=== PATIENT | female | born 1995 | race Caucasian/White ===

== ENCOUNTER 2022-09-22 08:43 | Emergency (ER) | payer BC, SELFPAY ==
--- NOTE | 2022-09-22 08:45 | ED.URI ---
HPI - URI/Sore Throat General Chief Complaint: Upper Respiratory Infection Stated Complaint: cough, sinus drainage,sore throat Time Seen by Provider: 09/22/22 08:45 Source: patient Mode of arrival: ambulatory Limitations: no limitations History of Present Illness HPI Narrative: Berta is a 27-year-old female patient presenting to clinic today with complaints of cough, sinus drainage, and sore throat x2- 3 days. She reports no fever or chills. No known sick contacts MD elicited complaint: sore throat and nasal congestion Related Data Home Medications Medication Instructions Recorded Confirmed fluoxetine 20 mg capsule 20 mg DAILY 09/22/22 09/22/22 levothyroxine 88 mcg tablet 88 mcg DAILY 09/22/22 09/22/22 norgestimate 0.25 mg-ethinyl 1 tablet DAILY 09/22/22 09/22/22 estradiol 35 mcg tablet (Tiffany) Allergies Allergy/AdvReac Type Severity Reaction Status Date / Time No Known Allergies Allergy Verified 09/22/22 09:14 Review of Systems Review of Systems: Pertinent positives per HPI. Patient denies any fever, chills, rash, headache, visual changes, dizziness, shortness of breath, chest pain, palpitations, nausea, vomiting, diarrhea, constipation, abdominal pain, or any urinary issues. PMFSH Comments At the time of my signature, I reviewed and agree with the nursing past medical, surgical, social, and family history. There is no relevant family history pertinent to the patient complaint. Exam Narrative: General: Well-developed, well nourished, in no apparent distress Head: Normocephalic, atraumatic Eyes: Pupils equally round and reactive to light bilaterally, EOM intact, sclera and conjunctive clear, no discharge, lids normal Ears: TMs intact and clear, ear canals clear, no drainage, grossly hearing normal. Nose: Nares patent, clear nasal discharge, no inflammation, no sinus tenderness. Mouth: Oral pharynx without lesions or masses, good dentition, MMM. Oropharynx red, postnasal drip Neck: Supple, trachea midline, no enlargement of anterior or posterior cervical nodes, no thyroid masses or goiter palpable. Cardio: Regular rate and rhythm, s1 and s2 normal, no murmur appreciated. Resp: Clear to auscultation bilaterally, no rhonchi, rales, wheezing or rubs Course Course Emergency Course: Portions of this record may have been created with voice recognition software. Level of Care: Express Care Visit Vital Signs Vital signs: Vital Signs Temperature 36.6 C 09/22/22 09:05 Pulse Rate 95 09/22/22 09:05 Respiratory Rate 16 09/22/22 09:05 Blood Pressure 144/106 H 09/22/22 09:05 Pulse Oximetry 97 09/22/22 09:05 Oxygen Delivery Room Air 09/22/22 09:05 Temperature 36.6 C 09/22/22 09:05 Pulse Rate 95 09/22/22 09:05 Respiratory Rate 16 09/22/22 09:05 Blood Pressure 144/106 H 09/22/22 09:05 Pulse Oximetry 97 09/22/22 09:05 Oxygen Delivery Room Air 09/22/22 09:15 Vital signs reviewed MDM - URI/Sore Throat MDM Narrative Medical decision making narrative: At the time of visit patient is resting comfortably on the exam table. Influenza and strep screen were obtained no for negative in the clinic today. I suspect the patient has an upper respiratory infection/pharyngitis. Supportive measures were discussed with the patient she voiced understanding of discharge instructions and agrees to treatment plan Differential Diagnosis Differential diagnosis: Likely upper respiratory infection, otitis media, sinusitis, viral infection, bronchitis, influenza, pharyngitis and other ( COVID) Lab Data Labs: Influenza A Screen Negative Reference Range: Negative Influenza B Screen Negative Reference Range: Negative Strep Screen Presumptive Negative *(Reference Range: Negative)* Discharge Plan Discharge Clini
[2022-09-22 09:05] VITALS: BP 144/106; PULSE 95; RESP 16; TEMP 36.6; O2SAT 97
== END 2022-09-22 09:37 | disposition home or self-care (01) ==
LOC: EXPGOSH 08:49
PROVIDERS: Emergency Provider Nurse Practitioner Family; PCP Nurse Practitioner Family
DX: J06.9 Acute upper respiratory infection, unspecified (principal); R05.9 Cough, unspecified; J02.9 Acute pharyngitis, unspecified
CPT/HCPCS: 87081; 87804; 87880; 99213; G0463

== ENCOUNTER 2024-07-31 13:31 | Emergency (ER) | payer OTHER, SELFPAY ==
[2024-07-31 13:40] VITALS: BP 145/115; PULSE 90; RESP 20; TEMP 36.5; O2SAT 100
--- NOTE | 2024-07-31 13:42 | ED.SOB ---
HPI - SOB/Dyspnea General Chief Complaint: Shortness of Breath/Dyspnea Stated Complaint: SOB/ Depression Time Seen by Provider: 07/31/24 13:43 Source: patient, RN notes reviewed and old records reviewed Mode of arrival: ambulatory Limitations: no limitations History of Present Illness HPI Narrative: patient presents accompanied by her significant other. Patient reports that she was diagnosed with COVID about 1 week ago. Says that she had been recovering nicely, but while she was ill she did not take her fluoxetine for 4 days. Today is the 1st day that she has taken it. She reports that she is having repeated panic attacks. She is tearful on arrival. She denies any suicidal or homicidal ideation. She reports that her biggest worry is going back to work. She has called her primary care provider, has an appointment next week. She reports that when she becomes anxious she does hyperventilate. we discussed methods to regulate her breathing, she is appreciative of this. Significant other is quite supportive. Related Data Allergies Allergy/AdvReac Type Severity Reaction Status Date / Time No Known Allergies Allergy Verified 07/31/24 13:37 Review of Systems Review of Systems: All systems reviewed & are unremarkable except as noted in HPI and below Constitutional: Constitutional: Reports no additional constitutional complaints ENT: Reports system reviewed and no additional complaints, except as documented Cardiovascular: Cardiovascular: Reports no additional cardiovascular complaints Respiratory: Respiratory: Reports as per HPI and Reports no additional respiratory complaints Gastrointestinal: Gastrointestinal: Reports no additional gastrointestinal complaints Psychiatric: Psychiatric: Reports anxiety, Reports panic attacks, Denies homicidal ideation and Denies suicidal ideation PMFSH Past Medical History Medical History Hypothyroidism Surgical History Surgical History H/O adenoidectomy Family History Family History Mother Depression Grandparent Skin cancer Social History Social History Social History: somewhat confident with medical forms Smoking status: Never smoker Alcohol intake: current Substance use: current Substance use type: marijuana Do You Feel Safe in your Home?: Yes Lack of Transportation: No Lack of Food: Never True Current Housing: I Have Housing Concerned About Future Housing: No Difficulty Paying Gas/Electric Bills: No Difficulty Paying for Meds: No Currently Unemployed: No Education: Bachelor's Degree Difficulty w/ Childcare or Family Care: No Living arrangements: with roommate(s) Additional living arrangements comments: Single Occupation/Education: occupation 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 There is no relevant family history pertinent to the patient complaint. Exam Const: General: cooperative, no acute distress, alert and awake Orientation/consciousness: oriented to person, oriented to place and oriented to time HENMT: Head: normal to inspection Resp: Effort & Inspection: normal respiratory effort and able to speak in complete sentences Auscultation: clear to auscultation bilaterally, no crackles, no rales, no rhonchi and no wheezes Cardio: Palpation: normal PMI Rate: regular rate Rhythm: regular rhythm Heart sounds: S1 normal heart sound present and S2 normal heart sound present Neuro: General: oriented to person, oriented to place and oriented to time Cranial nerves: Yes CN's II-XII intact bilate
== END 2024-07-31 14:04 | disposition home or self-care (01) ==
PROVIDERS: Emergency Provider Nurse Practitioner Family; PCP Nurse Practitioner Family
DX: F41.9 Anxiety disorder, unspecified (principal); F32.A Depression, unspecified; E03.9 Hypothyroidism, unspecified; Z79.899 Other long term (current) drug therapy
CPT/HCPCS: 99213; G0463

== ENCOUNTER 2024-08-01 19:00 | Emergency (ER) | payer OTHER, SELFPAY ==
[2024-08-01] VITALS (9 sets, daily range): BP systolic 153–169; BP diastolic 108–136; PULSE 78–99; RESP 16–22; TEMP 36.1–37.6; O2SAT 95–100
[2024-08-01] MEDS: LOPERAMIDE HCL 2 MG CAPSULE 4 MG PO (19:45)
[2024-08-01] MEDS: ONDANSETRON INJ 4 MG/2 ML VIAL IV PUSH (19:46)
[2024-08-01 19:47] LABS: Basophils Percent Auto 0.3 % (0.2-1.2); Eosinophils Percent Auto 0.1 % (0-4.4); Hematocrit 41.2 % (37.0-47.0); Hemoglobin 13.9 g/dL (12.0-15.0); Immature Granulocyte Absolute 0.03 K/mm3 (0.00-0.031); Immature Granulocyte Percent A 0.3 % (0-0.5); Lymphocytes Absolute Auto 1.81 K/mm3 (0.9-3.2); Lymphocytes Percent Auto 15.9 % (18.3-44.2); Mean Corpuscular HGB Conc 33.7 g/dl (32-36); Mean Corpuscular Hemoglobin 27.4 pg (26-34); Mean Corpuscular Volume 81.3 fl (80-100); Monocytes Absolute Auto 0.4 K/mm3 (0.1-0.6); Monocytes Percent Auto 3.6 % (2.6-8.5); Neutrophils Absolute Auto 9.1 K/mm3 (1.3-6.7); Neutrophils Percent Auto 79.8 % (45.5-73.1); Platelet Count Result 381 k/mm3 (150-375); Red Blood Count 5.07 M/mm3 (4.2-5.4); Red Cell Distribution Width 13.2 % (11.5-14.5); White Blood Count 11.4 K/mm3 (4.5-10.0)
[2024-08-01] MEDS: LACTATED RINGERS 1,000 ML 999 ML IV CONT (19:48)
[2024-08-01] MEDS: FAMOTIDINE 20 MG/2 ML VIAL IV PUSH (19:50)
[2024-08-01 19:56] LABS: Alanine Aminotransferase 54 U/L (6-35); Albumin Level 4.8 g/dL (3.5-5.1); Alkaline Phosphatase 90 U/L (38-126); Anion Gap 17 mmol/L (4-12); Aspartate Amino Transferase 38 U/L (14-36); Bilirubin,Total 0.5 mg/dL (0.2-1.3); Blood Urea Nitrogen 10 mg/dL (7-17); Calcium 9.9 mg/dL (8.4-10.2); Carbon Dioxide 15 mmol/L (22-30); Chloride 106 mmol/L (98-107); Estimated CRCL calculation 139 ml/min; Estimated Glomerular Filt Rate > 60; Glucose 110 mg/dL (65-110); Lipase 132 U/L (23-300); Sodium 138 mmol/L (137-145)
[2024-08-01] MEDS: MAG HYDROX/AL HYDROX/SIMETH 30 ML UDC PO (20:50)
[2024-08-01] MEDS: DICYCLOMINE HCL 10 MG CAPSULE 20 MG PO (20:50)
--- NOTE | 2024-08-01 21:25 | ED.ABDPAIN ---
HPI - Abdominal Pain General Chief Complaint: Abdominal Pain Stated Complaint: abd pain Time Seen by Provider: 08/01/24 19:26 History of Present Illness HPI narrative: Patient presents here with nausea, vomiting, diarrhea, epigastric abdominal discomfort/spasm S started today, possibly after jogging of chocolate milkshake or eating mac and cheese. Have just been getting over COVID. Unable to keep much down without having diarrhea or vomiting. Related Data Allergies Allergy/AdvReac Type Severity Reaction Status Date / Time No Known Allergies Allergy Verified 08/01/24 19:01 Review of Systems Review of Systems: All systems reviewed & are unremarkable except as noted in HPI and below PMFSH Past Medical History Medical History Hypothyroidism Surgical History Surgical History H/O adenoidectomy Family History Family History Mother Depression Grandparent Skin cancer Social History Social History Social History: somewhat confident with medical forms Smoking status: Never smoker Alcohol intake: current Substance use: current Substance use type: marijuana Do You Feel Safe in your Home?: Yes Lack of Transportation: No Lack of Food: Never True Current Housing: I Have Housing Concerned About Future Housing: No Difficulty Paying Gas/Electric Bills: No Difficulty Paying for Meds: No Currently Unemployed: No Education: Bachelor's Degree Difficulty w/ Childcare or Family Care: No Living arrangements: with roommate(s) Additional living arrangements comments: Single Occupation/Education: occupation 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 EYES: EOMI, conjunctiva normal ENT: Hearing grossly intact LUNGS: Nonlabored breathing. HEART: [Regular rate and rhythm] ABD: [Soft], very minimal tenderness to palpation epigastric abdomen EXT: Normal range of motion SKIN: [No rashes or lesions.] NEURO: [Alert and oriented x 3. No gross focal sensory or strength deficits.] PSYCH: Normal affect Course Vital Signs Vital signs: Vital Signs Temperature 97 F L 08/01/24 19:09 Pulse Rate 99 08/01/24 19:09 Respiratory Rate 16 08/01/24 19:09 Blood Pressure 153/117 H 08/01/24 19:09 Pulse Oximetry 99 08/01/24 19:09 Oxygen Delivery Room Air 08/01/24 19:09 Temperature 99.6 F 08/01/24 19:32 Pulse Rate 85 08/01/24 21:02 Respiratory Rate 20 08/01/24 21:02 Blood Pressure 157/108 H 08/01/24 21:02 Pulse Oximetry 99 08/01/24 21:02 Oxygen Delivery Room Air 08/01/24 19:09 MDM - Abdominal Pain MDM Narrative Medical decision making narrative: Electronic medical record was reviewed. Patient presented to the ED with complaint of [abdominal pain and vomiting and diarrhea]. Vitals [were within acceptable limits]. Physical exam revealed [ well-appearing patient, abdomen soft with only very minimal tenderness to epigastric abdomen]. Based on the patient's history and physical exam, my differential includes but is not limited to [gastritis, gastroenteritis, considered cholecystitis, pancreatitis, doubt appendicitis without RLQ pain/tenderness]. [IV access was established by nursing staff. Patient was given zofran, famotidine, IVF, loperamide]. CBC, BMP, lipase, LFTs, bilirubin and alk phos were obtained. Labs were pertinent for very minimally elevated LFTs, white count, anion gap. on re-evaluation she is feeling slightly better but still occasionally having some sto
== END 2024-08-01 21:43 | disposition home or self-care (01) ==
PROVIDERS: Emergency Provider Emergency Medicine; PCP Nurse Practitioner Family
DX: R11.2 Nausea with vomiting, unspecified (principal); R19.7 Diarrhea, unspecified; E03.9 Hypothyroidism, unspecified; Z86.16 Personal history of COVID-19; Z79.3 Long term (current) use of hormonal contraceptives
CPT/HCPCS: 36415; 80053; 83690; 85025; 96361; 96374; 96375; 99284; A9270; J2405; J7120

== ENCOUNTER 2024-10-24 08:23 | Emergency (ER) | payer OTHER, SELFPAY ==
--- NOTE | ~2024-10-24 | XR_ITS ---
EXAMINATION: XR foot LT min 3V DATE: 10/24/2024 08:55 INDICATION: Lateral right foot pain post injury TECHNIQUE: Dorsoplantar, two oblique and lateral views of the left foot were obtained. COMPARISON: None. FINDINGS: Mildly comminuted oblique extra articular fracture at the mid to distal diaphysis of the left fifth m etatarsal. There is 5 mm medial displacement of the proximal margin of the distal fragment which is a ngulated 5 degrees laterally and with a couple millimeter proximal migration. There is a small interv ening medial sided fragment which is medially angulated between its nondisplaced contacts with the ma in proximal distal fragments. No other fractures identified. Joint spaces are normal. Soft tissue swe lling at the lateral side of the forefoot. IMPRESSION: 1. Mildly comminuted and mildly displaced and angulated diaphyseal fracture of the left fifth metatar aga. Reviewed, dictated and finalized at location A. AGE INSPECTOR IMPRESSION: 1. Mildly comminuted and mildly displaced and angulated diaphyseal fracture of the left fifth metatarsal.
[2024-10-24 08:34] VITALS: BP 151/102; PULSE 91; RESP 16; TEMP 36.4; O2SAT 99
--- NOTE | 2024-10-24 08:34 | ED_ITS ---
HPI - Extremity Injury (Lower) General Chief Complaint: Extremity Injury, Lower Stated Complaint: fall Source: patient, RN notes reviewed and old records reviewed Mode of arrival: ambulatory Limitations: no limitations History of Present Illness HPI Narrative: Patient presents with complaints of left foot pain after falling on steps at 7:00 a.m. today. Pain is lateral, there is some associated swelling. She took 600 mg of ibuprofen prior to arrival with good relief. She denies other injury and trauma, including head trauma. She reports that she slipped on 2-3 steps. No other concerns or complaints today Related Data Allergies Allergy/AdvReac Type Severity Reaction Status Date / Time No Known Allergies Allergy Verified 10/24/24 08:28 Review of Systems Review of Systems: All systems reviewed & are unremarkable except as noted in HPI and below Constitutional: Constitutional: Reports no additional constitutional complaints ENT: Reports system reviewed and no additional complaints, except as documented Cardiovascular: Cardiovascular: Reports no additional cardiovascular complaints Respiratory: Respiratory: Reports no additional respiratory complaints Gastrointestinal: Gastrointestinal: Reports no additional gastrointestinal complaints Musculoskeletal: Musculoskeletal: Reports no additional musculoskeletal complaints, Reports as per HPI and Reports abnormal gait [facility] Past Medical History Medical History Hypothyroidism Surgical History Surgical History H/O adenoidectomy Family History Family History Mother Depression Grandparent Skin cancer Social History Social History Social History: somewhat confident with medical forms Smoking status: Never smoker Alcohol intake: current Substance use: current Substance use type: marijuana Do You Feel Safe in your Home?: Yes Lack of Transportation: No Lack of Food: Never True Current Housing: I Have Housing Concerned About Future Housing: No Difficulty Paying Gas/Electric Bills: No Difficulty Paying for Meds: No Currently Unemployed: No Education: Bachelor's Degree Difficulty w/ Childcare or Family Care: No Living arrangements: with roommate(s) Additional living arrangements comments: Single Occupation/Education: occupation 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 There is no relevant family history pertinent to the patient complaint. Exam Const: General: cooperative, no acute distress, alert and awake Orientation/consciousness: oriented to person, oriented to place and oriented to time HENMT: Head: normal to inspection Resp: Effort & Inspection: normal respiratory effort and able to speak in complete sentences Auscultation: clear to auscultation bilaterally, no crackles, no rales, no rhonchi and no wheezes Cardio: Palpation: normal PMI Rate: regular rate Rhythm: regular rhythm Heart sounds: S1 normal heart sound present and S2 normal heart sound present Neuro: General: oriented to person, oriented to place and oriented to time Cranial nerves: Yes CN's II-XII intact bilaterally Extrem: Left lower extremity: normal capillary refill and foot Details: normal capillary refill, tenderness Location: of the dorsal foot and of the lateral foot and edema Location: of the dorsal foot and of the lateral foot Psych: Appearance: grossly normal Thought process: Normal thought process present Insight: Good insight present (Psych) Judgement: Good judgement present (Psych) Course Course Level of Care: Express Care Visit Vital Signs Vital signs: Reviewed MDM - Extremity Injury (Lower) MDM Narrative Medical decision making narrative: patient with 5th metatarsal fracture. Splint and crutch training provided here, follow with Orthopedics. Pain relieved well with ibuprofen. Discharge instructions reviewed with patient, as well as provided in writing per nursing staff. The instructions also include specific and strict return/GO TO THE ER as well as f/u information. All questions have been answered, and the patient deny any further questions with discharge and discharge plan. Some parts of this dictation were generated by voice recognition software and may contain typographical and/or grammatical inaccuracies. Differential Diagnosis Differential diagnosis: Likely other (Ankle fracture, foot fracture, foot sprain, contusion) Medical Records Attestation: I reviewed the patient's medical records. Imaging Data My impression: fracture of the left 5th metatarsal Radiologist's impression: Express [address] [address] XRay Report Signed Patient: Berta Rutledge : 1995 MR#: [id number] Age: 29 Acct:[id number] Loc: [facility] ADM Date: 10/24/24Attending Dr: Ordering Physician: Alanna Hammond FNP Date of Service: 10/24/24 Procedure(s): XR foot LT min 3V Accession Number(s): [id number] cc: Alanna Hammond FNP; EduarJena APRN~ EXAMINATION: XR foot LT min 3V DATE: 10/24/2024 08:55 INDICATION: Lateral right foot pain post injury TECHNIQUE: Dorsoplantar, two oblique and lateral views of the left foot were obtained. COMPARISON: None. FINDINGS: Mildly comminuted oblique extra articular fracture at the mid to distal diaphysis of the left fifth metatarsal. There is 5 mm medial displacement of the proximal margin of the distal fragment which is angulated 5 degrees laterally and with a couple millimeter proximal migration. There is a small intervening medial sided fragment which is medially angulated between its nondisplaced con tacts with the main proximal distal fragments. No other fractures identified. Joint spaces are normal. Soft tissue swelling at the lateral side of the forefoot. IMPRESSION: 1. Mildly comminuted and mildly displaced and angulated diaphyseal fracture of the left fifth metatarsal. Reviewed, dictated and finalized at location A. IVING WEIGHER Dictated By: Home Wagner MD 10/24/24 0911 Signed By: <Electronically signed by Home Wagner MD in OV> 10/24/24 0916 Discharge Plan Discharge Clinical Impression: Elevated blood pressure reading Foot fracture, left Qualifiers: Encounter type: initial encounter Fracture type: closed Qualified Code(s): S92.902A - Unspecified fracture of left foot, initial encounter for closed fracture Patient Disposition: Home, Self-Care Condition: Stable Instructions: Antibiotic Form, Foot Fracture in Adults (ED) Additional Instructions: take medications as prescribed. Follow with primary care provider regarding your elevated blood pressure. Follow up with orthopedics for your foot fracture. . Emergency department for any new or worse symptoms Patient Language: Tristanian Prescriptions: New ibuprofen 800 mg tablet 800 mg PO TID PRN (Reason: pain) Qty: 30 0RF No Action fluoxetine 40 mg capsule 40 mg PO DAILY Qty: 90 1RF Rx Instructions: dc 20 mg dose. norgestimate-ethinyl estradiol [Tiffany] 0.25-35 mg-mcg tablet 1 tablet PO DAILY Qty: 84 3RF levothyroxine 112 mcg tablet 112 mcg PO DAILY Qty: 90 1RF Follow-up/Referrals: [facility] [Other] Jena Witt APRN [Primary Care Provider] - 2 Weeks Time of Disposition: 09:29
== END 2024-10-24 09:45 | disposition home or self-care (01) ==
PROVIDERS: Emergency Provider Nurse Practitioner Family; PCP Nurse Practitioner Family
DX: S92.352A Displaced fracture of fifth metatarsal bone, left foot, initial encounter for closed fracture (principal); W10.9XXA Fall (on) (from) unspecified stairs and steps, initial encounter; R03.0 Elevated blood-pressure reading, without diagnosis of hypertension; F12.90 Cannabis use, unspecified, uncomplicated; E03.9 Hypothyroidism, unspecified
CPT/HCPCS: 29515; 73630; 99214; G0463